=== PATIENT | female | born 1980 | race Caucasian/White ===

== ENCOUNTER 2022-01-17 14:07 | Emergency (ER) | payer OTHER ==
[~2022-01-17] VITALS: Ht 160 cm; Wt 91.2 kg
[2022-01-17 14:38] VITALS: BP 118/68
[2022-01-17] MEDS ORDERED: IBUP-2213 PO (15:36)
[2022-01-17] MEDS ORDERED: NIRM1TAB PO (15:36)
[2022-01-17] MEDS ORDERED: SUD30 PO (15:36)
--- NOTE | 2022-01-17 16:09 | NUR ---
Patient discharged with v/s stable. Written and verbal after care instructions given. Patient alert, oriented and verbalized understanding of instructions. Ambulatory with steady gait. All questions addressed prior to discharge. ID band removed. Patient advised to follow up with PMD. Rx of Ibuprofen, Paxlovid and Sudafed given. Opportunity to ask questions provided and answered.
== END 2022-01-17 16:09 | disposition home or self-care (01) ==
LOC: MED 14:07
DX: U07.1 COVID-19 (principal); E11.9 Type 2 diabetes mellitus without complications; I10 Essential (primary) hypertension
CPT/HCPCS: 99283

== ENCOUNTER 2022-11-30 10:39 | Emergency (ER) | payer OTHER ==
[~2022-11-30] VITALS: Ht 162.6 cm; Wt 86.6 kg
[~2022-11-30 10:39] MED LIST: IBUP-2213 PO; NIRM1TAB PO; SUD30 PO
[2022-11-30 10:44] VITALS: BP 113/70
--- NOTE | 2022-11-30 10:49 | NUR ---
BLOOD GLUCOSE 159 IN TRIAGE
--- NOTE | 2022-11-30 11:00 | NUR ---
PT AMB TO BED 12
--- NOTE | 2022-11-30 11:15 | NUR ---
42YO FEMALE PT C/O SOB X3DAYS. STATES CHEST PAIN ON DEEP INHALATION. DENIES USING INHALER. RESPIRATIONS EVEN AND UNLABORED. JADE CLEAR LUNG SOUNDS. O2 98% RA. PT AAOX4, ON [facility] [employer] HX: HTN NKA
[2022-11-30 11:42] LABS: BASOPHILS % (AUTO) 0.4 % (0.0-2.0); EOSINOPHILS # (AUTO) 0.2 K/uL (0-0.4); EOSINOPHILS % (AUTO) 2.2 % (0.0-4.0); HEMOGLOBIN 12.1 g/dL (12.0-16.0); LYMPHOCYTES # (AUTO) 1.5 K/uL (2.5-16.5); LYMPHOCYTES % (AUTO) 21.3 % (20.5-51.1); MEAN CORPUSCULAR HEMOGLOBIN 30 pg (27-31); MEAN CORPUSCULAR HGB CONC 34 g/dL (33-37); MONOCYTES # (AUTO) 0.6 K/uL (0.8-1.0); MONOCYTES % (AUTO) 7.8 % (1.7-9.3); NEUTROPHILS # (AUTO) 4.9 K/uL (1.8-7.7); NEUTROPHILS % (AUTO) 68.3 % (42.2-75.2); PLATELET COUNT (AUTO) 253 K/uL (140-450); RED CELL DISTRIBUTION WIDTH 13.1 % (11.6-13.7); WHITE BLOOD COUNT (AUTO) 7.2 K/uL (4.8-10.8)
[2022-11-30 11:59] LABS: ALBUMIN 3.4 g/dL (3.4-5.0); ANION GAP 9.5 (8-16); CARBON DIOXIDE 28.3 mmol/L (21-32); CREATININE 0.6 mg/dL (0.6-1.3); POTASSIUM 3.8 mmol/L (3.5-5.1); TOTAL BILIRUBIN 0.6 mg/dL (0.0-1.0)
[2022-11-30 14:20] VITALS: BP 108/63
--- NOTE | 2022-11-30 14:35 | NUR ---
Patient discharged with v/s stable. Written and verbal after care instructions given and explained. Patient verbalized understanding. Ambulatory with steady gait. All questions addressed prior to discharge. Advised to follow up with PMD.
== END 2022-11-30 14:35 | disposition home or self-care (01) ==
LOC: MED 10:39
DX: R07.9 Chest pain, unspecified (principal); R06.02 Shortness of breath; E11.9 Type 2 diabetes mellitus without complications; I11.0 Hypertensive heart disease with heart failure; I50.9 Heart failure, unspecified; Z79.1 Long term (current) use of non-steroidal anti-inflammatories (NSAID); Z79.899 Other long term (current) drug therapy
CPT/HCPCS: 36415; 71045; 80053; 82948; 83880; 84484; 85025; 93005; 99285

== ENCOUNTER 2023-05-08 18:06 | Emergency (ER) | payer OTHER ==
[~2023-05-08] VITALS: Ht 177.8 cm; Wt 90.3 kg
[2023-05-08 18:16] VITALS: BP 123/76; PULSE 68; RESP 20; TEMP 96.8; O2SAT 99
[2023-05-08] MEDS ORDERED: ACET-10509 PO (19:10)
== END 2023-05-08 19:42 | disposition home or self-care (01) ==
LOC: MED 18:06
DX: H92.02 Otalgia, left ear (principal); E11.9 Type 2 diabetes mellitus without complications; I11.0 Hypertensive heart disease with heart failure; I50.9 Heart failure, unspecified; Z79.899 Other long term (current) drug therapy; Z79.1 Long term (current) use of non-steroidal anti-inflammatories (NSAID)
CPT/HCPCS: 99281; 99282

== ENCOUNTER 2024-01-30 11:03 | Emergency (ER) | payer OTHER ==
[~2024-01-30] VITALS: Ht 162.6 cm; Wt 90.7 kg
[~2024-01-30 11:03] MED LIST changes: +ACET500T99 PO
[2024-01-30 11:12] VITALS: BP 128/81; PULSE 61; RESP 18; TEMP 98.4; O2SAT 98
[2024-01-30 12:08] LABS: BASOPHILS % (AUTO) 0.3 % (0.0-2.0); EOSINOPHILS # (AUTO) 0.2 K/uL (0-0.4); EOSINOPHILS % (AUTO) 2.1 % (0.0-4.0); HEMOGLOBIN 12.6 g/dL (12.0-16.0); LYMPHOCYTES # (AUTO) 1.5 K/uL (2.5-16.5); MEAN CORPUSCULAR HEMOGLOBIN 30 pg (27-31); MEAN CORPUSCULAR HGB CONC 33 g/dL (33-37); MEAN CORPUSCULAR VOLUME 90.4 fL (80-94); MONOCYTES # (AUTO) 0.9 K/uL (0.8-1.0); MONOCYTES % (AUTO) 10.2 % (1.7-9.3); NEUTROPHILS # (AUTO) 5.8 K/uL (1.8-7.7); NEUTROPHILS % (AUTO) 69.4 % (42.2-75.2); PLATELET COUNT (AUTO) 269 K/uL (140-450); RED CELL DISTRIBUTION WIDTH 13.4 % (11.6-13.7); WHITE BLOOD COUNT (AUTO) 8.4 K/uL (4.8-10.8)
[2024-01-30 12:29] LABS: CALCIUM 8.7 mg/dL (8.5-10.1); CARBON DIOXIDE 27.3 mmol/L (21-32); CREATININE 0.7 mg/dL (0.6-1.3); POTASSIUM 4.3 mmol/L (3.5-5.1)
[2024-01-30 14:00] VITALS: BP 111/66; PULSE 67; RESP 18; TEMP 98.4; O2SAT 98
== END 2024-01-30 17:06 | disposition home or self-care (01) ==
LOC: MED 11:03
DX: R42 Dizziness and giddiness (principal); R07.9 Chest pain, unspecified; R06.02 Shortness of breath; E11.9 Type 2 diabetes mellitus without complications; E03.9 Hypothyroidism, unspecified; I11.0 Hypertensive heart disease with heart failure; I50.9 Heart failure, unspecified; Z79.899 Other long term (current) drug therapy
CPT/HCPCS: 36415; 71045; 80048; 83880; 84484; 85025; 93005; 99285

== ENCOUNTER 2024-02-27 20:33 | Emergency (ER) | payer OTHER ==
[~2024-02-27] VITALS: Ht 167.6 cm; Wt 90.7 kg
[2024-02-27 20:35] VITALS: BP 124/51; PULSE 68; RESP 16; TEMP 97.5; O2SAT 97
[2024-02-27] MEDS ORDERED: ALBU0.0912 IH (21:39)
[2024-02-27 21:53] VITALS: BP 124/51; PULSE 68; RESP 16; TEMP 97.5; O2SAT 97
== END 2024-02-27 21:53 | disposition home or self-care (01) ==
LOC: MED 20:33
DX: U07.1 COVID-19 (principal); I11.0 Hypertensive heart disease with heart failure; I50.9 Heart failure, unspecified; E11.9 Type 2 diabetes mellitus without complications; Z79.899 Other long term (current) drug therapy
CPT/HCPCS: 71045; 93005; 99283; Q0092